=== PATIENT | female | born 1960 | race Caucasian/White ===

== ENCOUNTER 2018-04-10 13:34 | Emergency (ER) | payer OTHER ==
[2018-04-10] MEDS ORDERED: Sodium Chloride 0.9% 1,000 ML IV ONE ×2 (14:23→17:24)
[2018-04-10 14:32] LABS: SQUAMOUS EPITHIAL < 1 /hpf (0-5); URINE BACTERIA MOD (<OCC); URINE BILIRUBIN NEGATIVE (NEGATIVE); URINE BLOOD NEGATIVE (NEGATIVE); URINE CLARITY Hazy (Clear); URINE COLOR Yellow (YELLOW); URINE GLUCOSE (UA) NORMAL (Normal); URINE LEUKOCYTE ESTERASE 3+ Leu/uL (Negative); URINE PROTEIN NEGATIVE (NEGATIVE); URINE UROBILINOGEN NORMAL mg/dL (0.2-1.0)
[2018-04-10] MEDS ORDERED: Sodium Chloride 0.9% 1,000 ML ONE (14:39)
[2018-04-10 14:40] LABS: BASO % 0.5 % (0.0-2.0); HEMOGLOBIN 12.6 g/dL (11.0-16.0); LYMPH # 1.2 K/uL (1.0-4.3); MEAN CELL VOLUME 78.7 fL (81.0-99.0); MEAN CORPUSCULAR HEMOGLOBIN 26.2 pg (27.0-31.0); MEAN CORPUSCULAR HGB CONC 33.3 g/dL (33.0-37.0); MEAN PLATELET VOLUME 7.9 fL (7.2-11.7); MONO # 0.2 K/uL (0.0-0.8); MONO % 2.2 % (0.0-10.0); NEUT # 7.9 K/uL (1.8-7.0); NEUT % 84.3 % (50.0-75.0); RBC 4.82 Mil/uL (3.80-5.20); RED CELL DISTRIBUTION WIDTH 14.5 % (11.5-14.5); WHITE BLOOD COUNT 9.3 K/uL (4.8-10.8)
[2018-04-10 14:52] LABS: ALB/GLOB RATIO 1.1 (1.0-2.1); ALBUMIN 4.5 g/dL (3.5-5.0); ALT/SGPT 33 U/L (9-52); AST/SGOT 28 U/L (14-36); BLOOD UREA NITROGEN 12 mg/dL (7-17); CALCIUM 9.8 mg/dl (8.6-10.4); GFR AFRICAN-AMERICAN > 60; GFR NON-AFRICAN AMERICAN > 60; LIPASE 91 U/L (23-300)
[2018-04-10] MEDS ORDERED: cefTRIAXone IV 1 gm in Dextros 50 ML IV ONE (15:04)
--- NOTE | 2018-04-10 15:07 | C.PDOC ---
History Of Present Illness 57 year old female presents to the emergency department with complaints of left flank pain, left abdominal pain, and subjective fever since last night. Patient reports that she also experienced nausea and vomiting today. Time Seen by Provider: 04/10/18 13:47 Chief Complaint (Nursing): Abdominal Pain History Per: Patient History/Exam Limitations: no limitations Onset/Duration Of Symptoms: Days (1) Current Symptoms Are (Timing): Still Present Location Of Pain/Discomfort: Other (left flank, left abdominal pain) Quality Of Discomfort: "Pain" Associated Symptoms: Fever, Nausea, Vomiting Past Medical History Reviewed: Historical Data, Nursing Documentation, Vital Signs Vital Signs: Last Vital Signs Temp 97.8 F 04/10/18 16:30 Pulse 79 04/10/18 16:30 Resp 18 04/10/18 16:30 BP 104/65 04/10/18 16:30 Pulse Ox 99 04/10/18 18:08 - Medical History PMH: No Chronic Diseases Surgical History: No Surg Hx Family History: States: No Known Family Hx - Social History Hx Alcohol Use: No Hx Substance Use: No - Immunization History Hx Tetanus Toxoid Vaccination: No Hx Influenza Vaccination: No Hx Pneumococcal Vaccination: No Review Of Systems Except As Marked, All Systems Reviewed And Found Negative. Constitutional: Positive for: Fever Gastrointestinal: Positive for: Nausea, Vomiting, Abdominal Pain Genitourinary: Positive for: Other (left flank pain) Physical Exam - Physical Exam Appears: Non-toxic, No Acute Distress, Other (thin) Skin: Normal Color, Warm Head: Atraumatic, Normacephalic Eye(s): bilateral: Normal Inspection Nose: Normal Oral Mucosa: Moist Throat: Normal, No Erythema, No Exudate Neck: Normal Chest: Symmetrical Cardiovascular: Rhythm Regular Respiratory: Normal Breath Sounds, No Rales, No Rhonchi, No Wheezing Gastrointestinal/Abdominal: Soft, Tenderness (LUQ) Extremity: Normal ROM Neurological/Psych: Oriented x3, Normal Speech, Normal Cognition ED Course And Treatment - Laboratory Results Result Diagrams: 04/10/18 14:35 04/10/18 14:35 Lab Interpretation: Abnormal (UA 65 WBC's, 12 RBC's) O2 Sat by Pulse Oximetry: 99 (RA) Pulse Ox Interpretation: Normal - CT Scan/US Abdomen and Pelvis CT Other Rad Studies (CT/US): Read By Radiologist, Radiology Report Reviewed CT/US Interpretation: IMPRESSION: 8 x 5 mm obstructing distal left ureteral stone in the left ureterocele; bilateral. nonobstructing renal stones Reevaluation Time: 18:11 Reassessment Condition: Improved Medical Decision Making Medical Decision Making: Plan: CT Abdomen and Pelvis with IV Contrast CMP Lipase CBC XR Obstructive Series Protonix 40mg IVP NaCl IV Fluids x 2 liters Toradol 30mg IVP Zofran 4mg IVP Ceftriaxone IV Blood Culture Urine Culture Urinalysis Disposition Doctor Will See Patient In The: Office Counseled Patient/Family Regarding: Studies Performed, Diagnosis - Disposition Disposition: HOME/ ROUTINE Disposition Time: 18:11 Condition: GOOD Forms: [facility] (Frisian) - Clinical Impression Clinical Impression: Renal colic on left side, UTI (urinary tract infection) - Scribe Statement The provider has reviewed the documentation as recorded by the Scribe (Hiro Chicas) Provider Attestation: All medical record entries made by the Scribe were at my direction and personally dictated by me. I have reviewed the chart and agree that the record accurately reflects my personal performance of the history, physical exam, medical decision making, and the department course for this patient. I have also personally directed, reviewed, and agree with the discharge instructions and disposition.
[2018-04-10] MEDS ORDERED: cefTRIAXone IV 1 gm in Dextros 50 ML IVPB ONE (15:15)
[2018-04-10] MEDS ORDERED: Iodixanol 320 MG/ML 100 ML BOTTLE IV ONE (16:47)
--- NOTE | 2018-04-10 17:46 | CT ---
EXAM: CT Abdomen and Pelvis With Intravenous Contrast EXAM DATE/TIME: 04/10/2018 3:09 PM CLINICAL HISTORY: 57 years old, female; Pain; Abdominal pain; Flank; Left; Additional info: Luq/l flank, ? pyelo TECHNIQUE: Axial computed tomography images of the abdomen and pelvis with intravenous contrast. All CT scans at this facility use at least one of these dose optimization techniques: automated exposure control; mA and/or kV adjustment per patient size (includes targeted exams where dose is matched to clinical indication); or iterative reconstruction. Coronal and sagittal reformatted images were created and reviewed. COMPARISON: There are no prior studies for comparison. FINDINGS: Lung bases: Heart size is normal. There is atelectasis at the lung bases ABDOMEN: Liver: There is fatty infiltration of the liver. Gallbladder and bile ducts: unremarkable Pancreas: unremarkable Spleen: unremarkable Adrenals: unremarkable Kidneys and ureters: There are bilateral nonobstructing renal stones.Right kidney and ureter are otherwise unremarkable.There is obstructive uropathy on the left. There is 8 x 5 mm stone in a left ureterocele. Stomach and bowel: Stomach is partially distended. Rotation is normal. There is no small bowel obstruction. Ileocecal region is unremarkable. Appendix and terminal ileum are unremarkable.Colon is incompletely distended which limits evaluation. PELVIS: Appendix: See stomach and bowel Bladder: unremarkable Reproductive: Uterus and adnexal structures are unremarkable. ABDOMEN and PELVIS: Intraperitoneal space: There is no free air or free fluid. Bones/joints: Bony structures are osteopenic. There are degenerative changes. There is mild disc bulging L4-L5 and L5-S1 Soft tissues: There is a small fat containing umbilical hernia. Vasculature: Vascular structures are unremarkable. Lymph nodes: There is no pathologic adenopathy. IMPRESSION: 8 x 5 mm obstructing distal left ureteral stone in the left ureterocele; bilateral nonobstructing renal stones Additional nonemergent findings as described above.
[2018-04-10 18:15] VITALS: BP 109/70; PULSE 69; RESP 20; TEMP 98; O2SAT 100
--- NOTE | 2018-04-10 18:42 | RAD ---
PROCEDURE: Radiographs of the chest and abdomen (obstructive series) HISTORY: abd pain COMPARISON: No prior. TECHNIQUE: AP radiograph of the chest, with upright and supine radiographs of the abdomen. FINDINGS: CHEST: Lungs: Mild ground-glass opacities changes seen throughout the the left mid-lower lung zone and to a lesser degree right lung base. . . Cardiovascular: Normal size heart. No pulmonary vascular congestion. Pleura: No pleural fluid. No pneumothorax. Other findings: None. ABDOMEN AND PELVIS: Bowel: Unremarkable bowel gas pattern. No evidence of mechanical obstruction. Free air: None. Bones: Unremarkable. Other findings: Few small calcific densities overlying the true pelvis may represent calcified pelvic phleboliths however the possibility of a distal ureteral and/or urinary bladder calculus not excluded. IMPRESSION: Ground-glass opacities changes seen within the left mid to lower lung zone and right lung base. No free air. No evidence of acute mechanical bowel obstruction. Few small calcific densities overlying the true pelvis may represent calcified pelvic phleboliths however the possibility of a distal ureteral and/or urinary bladder calculus not excluded.
== END 2018-04-10 18:35 | disposition home or self-care (01) ==
LOC: C.ER 13:34
DX: N39.0 Urinary tract infection, site not specified (principal); N28.89 Other specified disorders of kidney and ureter
CPT/HCPCS: 74022; 74177; 80053; 81001; 83690; 85025; 87040; 87086; 87181; 96361; 96365; 96375; 99284; C9113; J0696; J1885; J2405; J7030; Q9967